=== PATIENT | female | born 1975 | race Caucasian/White ===

== ENCOUNTER 2024-09-17 11:25 | Outpatient (CLI) | payer BC, SELFPAY ==
--- NOTE | ~2024-09-17 | US_ITS ---
Pelvic ultrasound. Clinical History: Ovarian cyst Technique: Realtime transabdominal and transvaginal scanning of the pelvis was performed. Color flow Doppler and Doppler spectral analysis were performed. Findings: The uterus is anteverted. The endometrial stripe has a thickness of 9 mm. No focal mass is identified. The right ovary measures 2.3 x 1.8 x 2.5 cm. No significant right ovarian or adnexal mass is seen. The left ovary measures 3.8 x 3.0 x 3.8 cm. No significant left ovarian or adnexal mass is seen. There is small amount of free fluid in the cul de sac. Impression: No significant abnormality. Small follicular ovarian cysts are less than 2 cm. Reviewed, dictated and finalized at [facility]. Impression: No significant abnormality. Small follicular ovarian cysts are less than 2 cm.
== END 2024-09-17 11:26 | disposition home or self-care (01) ==
LOC: MICIMG 11:25
PROVIDERS: PCP Obstetrics & Gynecology; Visit Provider Obstetrics & Gynecology
DX: N83.209 Unspecified ovarian cyst, unspecified side (principal)
CPT/HCPCS: 76830; 76856